=== PATIENT | male | born 1950 | race Caucasian/White ===

== ENCOUNTER → 2016-09-01 | Day surgery (SDC) | payer MEDICARE, BC ==
[~2016-09-01] VITALS: Ht 174 cm; Wt 101.7 kg
[~2016-09-01] MED LIST: AMOXICILLIN500 MG PO; CPAP; DOXYCYCLINE HY100 M2 PO; FLOMAX0.4 MG PO; LEVAQUIN500 MG PO; NEURONTIN300 MG PO; PRADAXA150 MG PO; PROTONIX40 MG PO; TENORMIN25 MG PO; TRICOR145 MG PO; TYLENOL WITH C1 EACH PO; ULTRAM50 MG PO
--- NOTE | ~2016-09-01 | OR ---
PATIENT'S NAME: BOBY MARISCAL [facility] AGE: 66 Y [address] ROOM: [place] [address] LOCATION: [facility] [place] ADMIT DATE: 09/01/2016 OR/Procedure Report DISCHARGE DATE: FAMILY PHYSICIAN: Hayley Brown ATTENDING PHYSICIAN: Serafin Alvarez SURGEON: Serafin Alvarez MD LICENSED MASS REAL ESTATE APPRAISER: DATE OF PROCEDURE: 09/01/2016 PREOPERATIVE DIAGNOSIS: Adenocarcinoma of the prostate. POSTOPERATIVE DIAGNOSIS: Adenocarcinoma of the prostate. PROCEDURE PERFORMED: Transperineal ultrasound-guided implantation of iodine- 125 seeds. RADIATION ONCOLOGIST: Bimal Velazquez MD, PhD. ANESTHESIA: General. COMPLICATIONS: None. OPERATIVE FINDINGS: Prostate volume is 46.5 mL. INDICATION FOR PROCEDURE: The patient is a 66-year-old male with adenocarcinoma of the prostate, Emily 7 (3+4) with a PSA of 4.92. The patient has elected to proceed with radiation seed implantation. DETAILS OF THE PROCEDURE: After informed consent was obtained, the patient was taken to the operating room. A general anesthetic was applied. He was placed in the dorsal lithotomy position with a wedge cushion underneath the buttocks. The ultrasound equipment hardware was assembled and the probe placed in the sled device. The probe was placed in the rectum, and serial contours of prostate were taken at 5-mm intervals using axial imaging to generate a prostate volume of 46.5 mL. Sagittal imaging was then used to determine the length of the prostate in the anterior, mid, and posterior proportion of gland from base to apex. These figures were 32, 37, and 32 mm respectively. These figures were used by the radiation oncologist to perform dosimetry calculations, completing the number of iodine-125 seeds to implant as well as spacing between the seeds. The groin and perineal area were prepped with Hibiclens. The template was attached to the sled device and pushed against the perineum. Using the largest transverse image, starting posteriorly at least 7 mm above the anterior rectal wall, individual needles were inserted. The needles were PATIENT'S NAME: BOBY MARISCAL [facility] AGE: 66 Y [address] ROOM: [place] [address] LOCATION: [facility] [place] ADMIT DATE: 09/01/2016 OR/Procedure Report DISCHARGE DATE: FAMILY PHYSICIAN: Hayley Brown ATTENDING PHYSICIAN: Serafin Alvarez placed approximately 1 cm apart. Once the entire periphery was implanted, imaging was switched to the sagittal plane. The tip of each individual needle was advanced to the base of the gland. The radiation oncologist then deposited the iodine-125 seeds. After deposition of seeds, the needles were removed. This was repeated until all the needles were implanted and removed. We then switched back to the largest transverse image. [place] were then placed in the anterior approximately 1 cm from the periphery, 1 cm apart, and at least 5 mm from the urethra. Following this, we returned to sagittal imaging. The tip of each individual needle was advanced to the base of the gland. The anterior needles were implanted as described in the periphery. At the end of the procedure, a cystoscopy was performed since the patient has iodine allergy. This revealed normal urethra and bladder mucosa without seeds within the prostate or bladder. The patient tolerated his procedure well and was transferred to recovery room in good condition. MD TYSON MELISSA/mann /[id number] CC: Hayley Villa PA-C d: 09/02/16 0147 t: 09/04/16 1237, OPERATIVE SUMMARY
--- NOTE | ~2016-09-01 | RTPR ---
PATIENT'S NAME: BOBY MARISCAL [facility] AGE: 66 Y [address] ROOM: [place] [address] LOCATION: [facility] [place] [place] ADMIT DATE: 09/01/2016 Oncology Report DISCHARGE DATE: FAMILY PHYSICIAN: Hayley Brown ATTENDING PHYSICIAN: Serafin Alvarez RADIATION THERAPY PROCEDURE NOTE DATE OF SERVICE: 09/01/2016 REFERRING PHYSICIAN: Dylan Villarreal MD, PhD PREOPERATIVE DIAGNOSIS: Carcinoma of the prostate. POSTOPERATIVE DIAGNOSIS: Carcinoma of the prostate. PROCEDURE: Transperineal ultrasound-guided implantation of iodine 125. RADIATION ONCOLOGIST: Dylan Villarreal MD, PhD. UROLOGIST: Serafin Alvarez MD. ANESTHESIA: General. COMPLICATIONS: None. OPERATIVE FINDINGS: Prostate volume 46.5 mL. INDICATIONS: Mr. Boby Mariscal is a 66-year-old white male with a Emily 7 carcinoma of the prostate, preimplant PSA of 4.92, clinical stage, stage IIA (T1c, Nx, M0). DESCRIPTION OF PROCEDURE: The patient was brought to the operating room for insertion of iodine-125 seeds into the prostate gland for treatment of an adenocarcinoma with a Emily score of 7 and a PSA of 4.92. The patient was placed under PATIENT'S NAME: BOBY MARISCAL [facility] AGE: 66 Y [address] ROOM: [place] [address] LOCATION: [facility] [place], [place] ADMIT DATE: 09/01/2016 Oncology Report DISCHARGE DATE: FAMILY PHYSICIAN: Hayley Brown ATTENDING PHYSICIAN: Serafin Alvarez anesthesia, then placed in the dorsal lithotomy position with a wedge under his buttocks to elevate his perineum. The patient's rectum was irrigated with sterile water and a Menezes catheter was inserted into the patient's bladder and clamped. Transrectal ultrasound probe was introduced into the patient's rectum, and the prostate was measured using planimetry. The prostate volume was determined to be 46.5 mL. The patient was then prepped and draped in the usual sterile fashion. [place] were placed through a special perineal template under ultrasound guidance into the prostate gland. During each of these needle placements and each of the following needle placements, the transrectal ultrasound was used to guide the needles and determine the proper position and depth. Care was taken to avoid the patient's bladder, urethra and rectal mucosa. 16 needles were placed around the periphery of the patient's prostate. Eighty iodine 125 seeds were then deposited evenly through each of these needles using an applicator. The needles were then removed, and new needles were placed in the interior of the prostate gland. Total of four needles were placed. Twenty iodine 125 seeds were then deposited through these needles into the prostate gland. The activity per seed was 0.406 mCi per seed. Total number of seeds implanted was 100. The total activity implanted was 40.6 mCi. The patient to have an iodine contrast allergy, thereafter had cystoscopy performed. The area of the bladder was examined. No stray seeds were noted in the bladder. Cystoscope was then removed. A survey was performed, the activity at the patient's surface and was found to be 5 mrem/hour at the abdomen, 80 mrem/hour at the perineum, 1.0 mrem/hour at 1 meter. The rest of the operating room was surveyed including the equipment table, the patient's Menezes bag, the laundry and trash containers, and no stray sources of radiation were found. The patient tolerated the procedure well was transferred to the PACU without incident. The patient will be seen 1 month's time by both ourselves and Urology. He will undergo a CT Sim at that time to evaluate the quality of his implant. The patient tolerated the procedure well. We thank you for allowing us to participate in his care. Sincerely, DYLAN VILLARREAL MD, PHD MARTÍNEZL/modl PATIENT'S NAME: BOBY MARISCAL [facility] AGE: 66 Y [address] ROOM: [place], [place] [address] LOCATION: [facility] [place] [place] ADMIT DATE: 09/01/2016 Oncology Report DISCHARGE DATE: FAMILY PHYSICIAN: Hayley Brown ATTENDING PHYSICIAN: Serafin Alvarez /[id number] CC: RUFINA Gilmore Antonio, MD d: 09/07/16 1441 t: 09/17/16 0932, CONSULTATION REPORT
== END | disposition disaster alternative care site (69) ==
LOC: GSDC 09:00 → EDSTATUS 09:00 → GSDC 09:01
PROC: 0VH001Z Insertion of Radioactive Element into Prostate, Open Approach (ICD-10-PCS; principal; 2016-09-01)
DX: C61 Malignant neoplasm of prostate (principal)
CPT/HCPCS: C1715; C2638; C2639; J1644; J3010; J7120